=== PATIENT | female | born 1990 | race Caucasian/White ===

== ENCOUNTER 2020-12-21 03:02 | Emergency (ER) | payer MEDICAID, SELFPAY ==
[2020-12-21 03:03] VITALS: BP 170/94; PULSE 82; RESP 19; TEMP 36.6; O2SAT 99; BMI 22.7
[2020-12-21 03:10] VITALS: PULSE 80; RESP 22; O2SAT 99
--- NOTE | 2020-12-21 03:11 | CTR_ITS ---
PROCEDURE INFORMATION: Exam: CT Abdomen And Pelvis With Contrast Exam date and time: 12/21/2020 3:15 AM Age: 30 years old Clinical indication: Abdominal pain; Localized; Left lower quadrant (llq); Prior surgery; Surgery type: Tubal; Patient HX: Llq pain; Additional info: Abd pain TECHNIQUE: Imaging protocol: Computed tomography of the abdomen and pelvis with contrast. Radiation optimization: All CT scans at this facility use at least one of these dose optimization techniques: automated exposure control; mA and/or kV adjustment per patient size (includes targeted exams where dose is matched to clinical indication); or iterative reconstruction. Contrast material: OMNI 300; Contrast volume: 95 ml; Contrast route: INTRAVENOUS (IV); COMPARISON: No relevant prior studies available. RADIATION DOSE METRICS: Total DLP (mGy-cm): 397.33 FINDINGS: Lungs: The lung bases are clear. Liver: Unremarkable. Gallbladder and bile ducts: No definite gallbladder abnormality by CT. No biliary tree dilation. Pancreas: Unremarkable. Spleen: Unremarkable. Adrenal glands: Unremarkable. Kidneys and ureters: There is appears to be slightly delayed concentration of contrast by the left kidney. No significant left hydronephrosis. However, there is mild to moderate left hydroureter, all the way to the urinary bladder. Suspect mild thickening/enhancement of the left ureteral sargent. No definite ureteral calculus is identified. Question if patient could have recently passed a left ureteral calculus. Other possible etiologies for this appearance might include left ureteritis/pyelonephritis, and less commonly a radiolucent ureteral calculus. Please correlate clinically. The left kidney enhances homogeneously. No right hydronephrosis or visible right ureteral calculus. Stomach and bowel: There are no CT findings to strongly suggest diverticulitis. Appendix: The appendix is probably identified, and there are no suspicious findings for appendicitis. No pericecal inflammatory changes are seen. Intraperitoneal space: No free air, ascites, or bowel distention. Vasculature: No evidence for abdominal aortic aneurysm. Lymph nodes: No retroperitoneal adenopathy. Urinary bladder: Small 2 mm calcification along the posterior right aspect of the urinary bladder that I think is probably posterior to the bladder rather than representing a calculus in the bladder. Difficult to be completely certain. Reproductive: Essentially unremarkable for age. Bones/joints: No significant acute finding. Soft tissues: No significant acute finding. CT/CT abdomen pelvis w con* [id number] IMPRESSION: 1. Mild to moderate left hydroureter. Suspect mild thickening/enhancement of the left ureteral sargent. 2. No visible ureteral calculus. Question if patient could have recently passed a left ureteral calculus. Left ureteritis/pyelonephritis should also be considered for this appearance. See additional discussion above. 3. No diverticulitis. 4. No free air or bowel distention. 5. Other findings discussed above. Radiation Dose CTDIVOL = (mGy): DLP = 397.33 (mGy-cm)
[2020-12-21 03:19] LABS: Basophils # 0.1 10^3/uL (0.0-0.1); Basophils % 0.5 %; Eosinophils # 0.6 10^3/uL (0.0-0.8); Eosinophils % 4.4 %; Hematocrit 31.6 % (37.0-47.0); Hemoglobin 9.4 g/dL (11.5-15.3); Lymphocytes # 1.8 10^3/uL (0.8-4.8); Lymphocytes % 12.5 %; Mean Corpuscular HGB Conc 29.7 g/dL (30.0-36.0); Mean Corpuscular Hemoglobin 21.4 pg (28.0-34.0); Mean Corpuscular Volume 71.8 fL (81-99); Mean Platelet Volume 9.9 fL (7.4-10.4); Monocytes # 1.1 10^3/uL (0.2-0.9); Monocytes % 7.7 %; Neutrophils # 10.66 10^3/uL (1.8-7.7); Neutrophils % 74.6 %; Nucleated Red Blood Cells % 0 %; Platelet Count 358 10^3/cmm (130-400); Red Cell Distribution Width 18.2 % (12.1-15.1); White Blood Count 14.3 10^3/uL (4.0-10.0)
--- NOTE | 2020-12-21 03:39 | W.ED.ABDPA2 ---
HPI - Abdominal Pain General: Chief Complaint: Abdominal Pain Stated Complaint: abd pain Time Seen by Provider: 12/21/20 03:11 History of Present Illness: HPI narrative: 30-year-old female presenting with sudden onset left lower quadrant pain around 1130. It worsened. She has had significant nausea, but no vomiting. No diarrhea, no blood in her stool. No change in her urination. MD elicited complaint: abdominal pain Pertinent past history: none Onset (ago): hour(s) Pain Consistency: constant Location: LLQ Severity: severe Quality: stabbing Radiation: LLQ Migration to: no migration Exacerbating factors: movement Associated Symptoms: Reports nausea; Denies coffee ground emesis, diarrhea, dysuria, fever(s), hematuria, loose stools and vomiting Related Data: Date of Last Menstrual Period: 12/21/20 Review of Systems Const: Denies: fever(s) ENMT: Denies: odynophagia, dental pain or sinus pain Card: Denies: chest pain, palpitations or irregular heart rhythm Resp: Denies: dyspnea, productive cough, non-productive cough or wheezing GI: Reports: nausea; Denies: vomiting, coffee ground emesis or diarrhea : Denies: dysuria, urinary frequency, urinary urgency or hematuria Musc: Denies: neck pain or back pain Skin/Breast: Denies: rash or erythema Neuro: Denies: headache(s), dizziness or vertigo Psych: Denies: anxiety or auditory hallucinations PFS ED PFSH: Medical History No pertinent past medical history Social History Smoking and tobacco status: current every day smoker cigarettes Packs smoked per day: 1 Years cigarettes smoked: 14 Second hand smoke exposure: Yes Alcohol intake: never Lives independently: Yes Household members: children Current occupational status: employed Current occupation: self History of recent travel: No Current gender identity: Female Female Reproductive History: Date of last menstrual period: 12/21/20 Physical Exam Const: GENERAL APPEARANCE: well developed and in distress ORIENTATION/CONSCIOUSNESS: Yes oriented to person, Yes oriented to place and Yes oriented to time HENMT: COMMON NORMALS: normocephalic, external ears normal and Normal external nose present HEAD & SCALP: normocephalic FACE & SINUS: normal facial exam NOSE: Normal external nose present and No nasal discharge present EXTERNAL EAR: Yes external ears normal Eye: COMMON NORMALS: Equal, round and reactive pupils present, EOMs intact bilaterally and conjunctivae normal EYELID: eyelids normal CONJUNCTIVA: Yes conjunctivae normal PUPIL: Yes Equal, round and reactive pupils present Neck/C-Spine: GENERAL: No tracheal deviation Chest: COMMONS NORMALS: normal inspection of the chest CHEST: No tenderness Resp: COMMON NORMALS: clear to auscultation bilaterally EFFORT & INSPECTION: No tachypneic, No respiratory distress, No retractions, No uses accessory muscles and No tracheal deviation AUSCULTATION: clear to auscultation bilaterally, no rhonchi, no wheezes and lung sounds not diminished Cardio: COMMON NORMALS: regular rate and regular rhythm RATE: regular rate RHYTHM: regular rhythm HEART SOUNDS: no murmurs PERIPHERAL PULSES: radial pulses present GI: INSPECTION: No abdominal distension AUSCULTATION: No Hyperactive bowel sounds present and No Hypoactive bowel sounds present PALPATION: Yes Tenderness to palpation present (GI) (Suprapubic) Details: LLQ, Yes Guarding due to palpation present (GI) and No Rigid due to palpation PERCUSSION: no dullness to percussion and no tympanic to percussion : COMMON NORMALS: Yes no CVA tenderness BLADDER/KIDNEY EXAM: Yes no CVA tenderness Back/Pelvis: COMMON NORMALS: no CVA tenderness Neuro: SENSORIUM/ORIENTATION: Yes oriented to person, Yes oriented to place and Yes oriented to time Psych: COMMON NORMALS: mental status grossly normal Skin: COMMON NORMALS: no rashes or lesions noted GENERAL SKIN EXAM: no rashes or lesions noted Course Vital Signs: Vital signs: Vital Signs Temperature 97.8 F 12/21/20 03:03 Pulse Rate 84 12/21/20 03:46 Respiratory Rate 18 12/21/20 03:46 Blood Pressure 170/94 12/21/20 03:03 Pulse Oximetry 99 12/21/20 03:46 MDM - Abdominal Pain MDM Narrative: Medical decision making narrative: 30-year-old female with left-sided abdominal pain. Her hemoglobin is 9.4. White blood cell count 14.3. Other labs are benign. She has hematuria on urinalysis without infection. CT shows mild to moderate left hydroureter and some thickening of the ureteral sargent on the left. This is suspicious for a recently passed kidney stone which fits her symptoms. Her pain is improved currently, although she still nauseated. She was counseled on her diagnosis. She will be discharged. Lab Data: Labs: Lab Results 12/21/20 12/21/20 12/21/20 Range/Units 03:08 03:08 03:08 WBC 14.3 H (4.0-10.0) 10^3/ uL RBC 4.40 (4.1-5.3) 10^6/u L Hgb 9.4 L (11.5-15.3) g/dL Hct 31.6 L (37.0-47.0) % MCV 71.8 L (81-99) fL MCH 21.4 L (28.0-34.0) pg MCHC 29.7 L (30.0-36.0) g/dL RDW 18.2 H (12.1-15.1) % Plt Count 358 (130-400) 10^3/c mm MPV 9.9 (7.4-10.4) fL Neut % (Auto) 74.6 % Lymph % (Auto) 12.5 % [place] % (Auto) 7.7 % Eos % (Auto) 4.4 % Baso % (Auto) 0.5 % Neut # (Auto) 10.66 H (1.8-7.7) 10^3/u L Lymph # (Auto) 1.8 (0.8-4.8) 10^3/u L [place] # (Auto) 1.1 H (0.2-0.9) 10^3/u L Eos # (Auto) 0.6 (0.0-0.8) 10^3/u L Baso # (Auto) 0.1 (0.0-0.1) 10^3/u L Nucleated RBC % (a uto) 0 % Nucleated RBCs # 0.0 /100WBC Sodium 136 (136-145) mmol/L Potassium 3.9 (3.5-5.1) mmol/L Chloride 104 (98-107) mmol/L Carbon Dioxide 23 (22-29) mmol/L Anion Gap 12.9 (5-19) BUN 21 H (6-20) mg/dL Creatinine 0.8 (0.5-0.9) mg/dL GFR Calculation 83.7 L (90-130) mL/min Glucose 88 (65-115) mg/dL Calculated Osmolal ity 284 L (285-295) mOsm/k g Lactate 0.9 (0.5-2.2) mmol/L Calcium 8.6 (8.5-10.5) mg/dL Total Bilirubin 0.3 (0.15-1.2) mg/dL AST 16 (0-32) U/L ALT 15 (0-33) U/L Alkaline Phosphata se 72 (35-105) IU/L C-Reactive Protein 0.3 (0.0-4.9) mg/L Total Protein 6.8 (6.6-8.7) g/dL Albumin 3.9 (3.5-5.2) g/dL Globulin 2.9 (1.3-4.6) g/dL Lipase 197 H (13-60) U/L HCG, Qual (Negative) Urine Color (Yellow) Urine Appearance (CLEAR) Urine pH (5-7) Ur Specific Gravit y (1.005-1.030) Urine Protein (Negative) Urine Glucose (UA) (Normal) Urine Ketones (Negative) Urine Blood (Negative) Urine Nitrate (Negative) Urine Bilirubin (Negative) Urine Urobilinogen (Negative) mg/dL Ur Leukocyte Stacy ase (Negative) Urine RBC (0-2) /hpf Urine WBC (0-5) /hpf Ur Squamous Epith Cells (0-5) /hpf Amorphous Sediment /hpf Urine Bacteria (NONE) /hpf 12/21/20 12/21/20 Range/Units 03:08 03:14 WBC (4.0-10.0) 10^3/ uL RBC (4.1-5.3) 10^6/u L Hgb (11.5-15.3) g/dL Hct (37.0-47.0) % MCV (81-99) fL MCH (28.0-34.0) pg MCHC (30.0-36.0) g/dL RDW (12.1-15.1) % Plt Count (130-400) 10^3/c mm MPV (7.4-10.4) fL Neut % (Auto) % Lymph % (Auto) % [place] % (Auto) % Eos % (Auto) % Baso % (Auto) % Neut # (Auto) (1.8-7.7) 10^3/u L Lymph # (Auto) (0.8-4.8) 10^3/u L [place] # (Auto) (0.2-0.9) 10^3/u L Eos # (Auto) (0.0-0.8) 10^3/u L Baso # (Auto) (0.0-0.1) 10^3/u L Nucleated RBC % (a uto) % Nucleated RBCs # /100WBC Sodium (136-145) mmol/L Potassium (3.5-5.1) mmol/L Chloride (98-107) mmol/L Carbon Dioxide (22-29) mmol/L Anion Gap (5-19) BUN (6-20) mg/dL Creatinine (0.5-0.9) mg/dL GFR Calculation (90-130) mL/min Glucose (65-115) mg/dL Calculated Osmolal ity (285-295) mOsm/k g Lactate (0.5-2.2) mmol/L Calcium (8.5-10.5) mg/dL Total Bilirubin (0.15-1.2) mg/dL AST (0-32) U/L ALT (0-33) U/L Alkaline Phosphata se (35-105) IU/L C-Reactive Protein (0.0-4.9) mg/L Total Protein (6.6-8.7) g/dL Albumin (3.5-5.2) g/dL Globulin (1.3-4.6) g/dL Lipase (13-60) U/L HCG, Qual Negative (Negative) Urine Color Yellow (Yellow) Urine Appearance Sl cloudy A (CLEAR) Urine pH 8 H (5-7) Ur Specific Gravit y 1.015 (1.005-1.030) Urine Protein Neg (Negative) Urine Glucose (UA) Norm (Normal) Urine Ketones Negative (Negative) Urine Blood 2+ H (Negative) Urine Nitrate Negative (Negative) Urine Bilirubin Neg (Negative) Urine Urobilinogen Norm (Negative) mg/dL Ur Leukocyte Stacy ase Negative (Negative) Urine RBC 0-4 H (0-2) /hpf Urine WBC 0-4 H (0-5) /hpf Ur Squamous Epith Cells 5-10 H (0-5) /hpf Amorphous Sediment 4+ /hpf Urine Bacteria Trace (NONE) /hpf Discharge Plan Discharge Patient Disposition: Home Clinical Impression: Ureterolithiasis, Renal colic on left side Condition: Stable Prescriptions: New Zofran 4 mg tablet 4 mg PO Q6H PRN (Reason: nausea and vomiting) Qty: 10 RF: 0 Percocet 7.5-325 mg tablet 1 tab PO Q6H PRN (Reason: pain) Qty: 5 RF: 0 Discharge Orders: Discharge ED (Routine); Ordered 12/21/20 Ordered By: Cheko Layton Discharge Diet: Advance as tolerated and Clear Liquid Discharge Activity: Increase activity as tolerated Patient Instructions: Kidney Stones (ED), Renal Colic (ED), Opioid Safety Activity Restrictions/Additional Instructions: Return for fever greater than 100, vomiting liquids or medications despite treatment, worsening pain despite treatment, other concerning symptoms. Coding Level of Care Code ED Rehabilitation Therapy Aide for Angela Fwd Exam Comprehensive
[2020-12-21] MEDS: sodium chloride 0.9% 1,000 ML 999 ML IV (03:40)
[2020-12-21 03:41] LABS: HCG, Serum Qual Negative (Negative)
[2020-12-21 03:42] VITALS: RESP 18; O2SAT 100
[2020-12-21] MEDS: HYDROmorphone 1 mg/mL INJ 1 mL IVP (03:42)
[2020-12-21 03:46] VITALS: PULSE 84; RESP 18; O2SAT 99
[2020-12-21 03:50] LABS: Lactate (Lactic Acid level) 0.9 mmol/L (0.5-2.2)
[2020-12-21 03:51] LABS: Alanine Aminotransferase 15 U/L (0-33); Albumin Level 3.9 g/dL (3.5-5.2); Alkaline Phosphatase 72 IU/L (35-105); Anion Gap 12.9 (5-19); Aspartate Amino Transferase 16 U/L (0-32); Blood Urea Nitrogen 21 mg/dL (6-20); C Reactive Protein 0.3 mg/L (0.0-4.9); Calcium 8.6 mg/dL (8.5-10.5); Carbon Dioxide 23 mmol/L (22-29); Chloride 104 mmol/L (98-107); Globulin 2.9 g/dL (1.3-4.6); Glomerular Filtration Rate 83.7 mL/min (90-130); Glucose 88 mg/dL (65-115); Lipase 197 U/L (13-60); Osmolality Calculated 284 mOsm/kg (285-295); Potassium 3.9 mmol/L (3.5-5.1); Sodium 136 mmol/L (136-145); Total Bilirubin 0.3 mg/dL (0.15-1.2); Total Protein 6.8 g/dL (6.6-8.7)
[2020-12-21] MEDS: iohexol 300 mg/mL 100 mL Btl IV (04:03)
[2020-12-21 04:37] LABS: Add Urine Microscopic? YES; Bilirubin Urine Neg (Negative); Blood Urine 2+ (Negative); Glucose Urine UA Norm (Normal); Ketones Urine Negative (Negative); Leukocyte Esterase Urine Negative (Negative); Nitrate Urine Negative (Negative); Protein Urine Neg (Negative); Specific Gravity, Urine 1.015 (1.005-1.030); Urine Color Yellow (Yellow); Urobilinogen Urine Norm (Negative); pH Urine 8 (5-7)
[2020-12-21 04:38] LABS: Add Urine Culture? No; Amorphous Sediment Urine 4+ /hpf; Bacteria Urine TRACE /hpf; RBC Urine 0-4 /hpf (0-2); WBC Urine 0-4 /hpf (0-5)
[2020-12-21] MEDS: ondansetron 2 mg/ML SDV 2 mL 4 MG IVP (05:25)
[2020-12-21 05:42] VITALS: BP 139/82; PULSE 69; RESP 16; O2SAT 100
== END 2020-12-21 05:42 | disposition home or self-care (01) ==
PROVIDERS: Emergency Provider Emergency Medicine
DX: N20.1 Calculus of ureter (principal); N23 Unspecified renal colic; F17.210 Nicotine dependence, cigarettes, uncomplicated
CPT/HCPCS: 74177; 80053; 81001; 83605; 83690; 84703; 85025; 86140; 96361; 96374; 96375; 99284; J1170; J2405; J7030; Q9967

== ENCOUNTER 2021-01-04 18:43 | Emergency (ER) | payer MEDICAID, SELFPAY ==
[2021-01-04 18:50] VITALS: BP 184/106; PULSE 84; RESP 16; TEMP 36.4; O2SAT 100; BMI 21.4
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
[2021-01-04] MEDS: HYDROcodone-acetaminophen 5-325 mg Tablet 1 TAB PO (20:56)
--- NOTE | 2021-01-04 21:05 | PC.NURSE ---
Sugar tong spling to right lower arm per Dr. Ruiz verbal order. Pt tolerated well. Pt arm placed in universal sling at this time as well.
[2021-01-04 21:06] VITALS: BP 141/110; PULSE 90; O2SAT 100
--- NOTE | 2021-01-06 09:32 | DCPLANNER ---
automotive center manager had message to schedule a follow up appointment for patient with ortho. automotive center manager called the ortho clinic, spoke with Jana, gave clinic patients information. automotive center manager was told that patients information would be printed and reviewed. Clinic will call patient with appointment information.
--- NOTE | 2021-01-08 10:29 | DCPLANNER ---
Patient has a follow up appointment scheduled for Friday, January 08, 2021 at 10:[address] Crawford. Clinic will call patient with appointment information.
--- NOTE | 2021-01-15 08:15 | DCPLANNER ---
Patient had a follow up appointment scheduled for 01.08.21 with ortho - patient did attend appointment.
== END 2021-01-04 21:06 | disposition home or self-care (01) ==
PROVIDERS: Emergency Provider Family Medicine
DX: S52.221A Displaced transverse fracture of shaft of right ulna, initial encounter for closed fracture (principal); W20.8XXA Other cause of strike by thrown, projected or falling object, initial encounter; F17.210 Nicotine dependence, cigarettes, uncomplicated
CPT/HCPCS: 29125; 73090; 99283

== ENCOUNTER 2021-01-08 13:39 | Outpatient (CLI) | payer MEDICAID, SELFPAY | END 2021-01-08 13:40 | disposition home or self-care (01) | LOC: SPT 13:40 | PROVIDERS: Visit Provider Orthopaedic Surgery | DX: Z46.89 Encounter for fitting and adjustment of other specified devices (principal); S52.201D Unspecified fracture of shaft of right ulna, subsequent encounter for closed fracture with routine healing; X58.XXXD Exposure to other specified factors, subsequent encounter | CPT/HCPCS: 97760; L3982 ==

== ENCOUNTER → 2021-01-22 11:23 | Outpatient (BNVA) | payer MEDICAID, SELFPAY | PROVIDERS: Visit Provider Orthopaedic Surgery | DX: S52.201A Unspecified fracture of shaft of right ulna, initial encounter for closed fracture (principal); X58.XXXA Exposure to other specified factors, initial encounter | CPT/HCPCS: 73110 ==

== ENCOUNTER → 2021-02-17 13:13 | Outpatient (BNVA) | payer MEDICAID, SELFPAY | PROVIDERS: Visit Provider Orthopaedic Surgery | DX: S52.201A Unspecified fracture of shaft of right ulna, initial encounter for closed fracture (principal); X58.XXXA Exposure to other specified factors, initial encounter | CPT/HCPCS: 73110 ==

== ENCOUNTER → 2021-06-16 11:13 | Outpatient (BNVA) | payer MEDICAID, SELFPAY | PROVIDERS: Visit Provider Nurse Practitioner Family | DX: L02.412 Cutaneous abscess of left axilla (principal); B07.9 Viral wart, unspecified | CPT/HCPCS: 87070; 87077; 87184 ==

== ENCOUNTER 2021-11-22 04:57 | Emergency (ER) | payer MEDICAID, SELFPAY ==
[2021-11-22 05:08] VITALS: BP 160/77; PULSE 99; RESP 18; TEMP 37.1; O2SAT 100; BMI 21.4
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
[2021-11-22 06:19] VITALS: RESP 18
[2021-11-22] MEDS: oxyCODONE-APAP 10-325 mg Tablet 2 TAB PO (06:19)
[2021-11-22 06:41] VITALS: BP 145/78; PULSE 99; RESP 18; TEMP 37.1; O2SAT 100
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
[2021-11-22] MEDS: oxymetazoline 0.05% Nasal Spray 15 mL 2 SPRAY NOSTRIL-B (07:56)
[2021-11-22 08:00] VITALS: PULSE 75; RESP 15; O2SAT 100
--- NOTE | 2021-11-24 11:12 | DCPLANNER ---
Addendum entered by Kaykay Costello 12/19/21 10:30: Patient had a follow up appointment scheduled for 12.03.21 with ENT - patient did attend appointment. Addendum entered by Kaykay Costello 12/02/21 08:18: Patient has a follow up appointment scheduled for Friday, December 03, 2021 at 9:[address] Nichols at [facility] ENT clinic. Clinic will call patient with appointment information. Original Note: district manager major accounts sales had message to schedule a follow up appointment for patient with ENT clinic. district manager major accounts sales emailed patients information to Sera Madison and Hannah at [facility] General Surgery / ENT clinic. Patients information will be printed and reviewed. Clinic will call patient with appointment information.
== END 2021-11-22 08:01 | disposition home or self-care (01) ==
PROVIDERS: Emergency Provider Emergency Medicine
DX: S05.12XA Contusion of eyeball and orbital tissues, left eye, initial encounter (principal); S00.33XA Contusion of nose, initial encounter; S02.2XXA Fracture of nasal bones, initial encounter for closed fracture; S02.19XA Other fracture of base of skull, initial encounter for closed fracture; F17.210 Nicotine dependence, cigarettes, uncomplicated; V49.9XXA Car occupant (driver) (passenger) injured in unspecified traffic accident, initial encounter
CPT/HCPCS: 70450; 70486; 72125; 99283

== ENCOUNTER → 2021-12-05 13:25 | Outpatient (BNVA) | payer MEDICAID, SELFPAY | PROVIDERS: Visit Provider Otolaryngology | DX: Z11.52 Encounter for screening for COVID-19 (principal) | CPT/HCPCS: 87635 ==

== ENCOUNTER 2021-12-11 08:12 | Day surgery (SDC) | payer MEDICAID, SELFPAY ==
[2021-12-09 13:02] VITALS: BMI 21.4
[2021-12-11] VITALS (9 sets, daily range): BP systolic 120–179; BP diastolic 80–103; PULSE 73–88; RESP 15–18; TEMP 36.1–36.8; O2SAT 99–100
--- NOTE | 2021-12-11 08:47 | ANES.PREANE2 ---
Pre-Anesthetic Assessment Height/Weight: Height 1.75 m Weight 65.771 kg Preop Diagnosis: Multiple nasal fractures/septal fracture/upper lip obstructing nevus. Operation Date: 12/11/21 09:30 Proposed Procedures p ORIF displaced Nasal Fracture & [place]al [place] 12025/89451/d23.30/s02.2(Not Applicable) - Alonzo Nichols MD s excision of right upper lip nevus & repair(Right) - Alonzo Nichols MD Was Beta Tim taken within 24 hours: N/A Was Clonidine taken within 24 hours: N/A Last intake: 12/10/2021 Social Tobacco and No alcohol Exam alert, oriented x 3, clear to auscultation bilaterally and regular rate & rhythm Airway Submandibular: within normal limits Cervical ROM: within normal limits Mallampati: Class I Dentition: chipped Comments: Comments: Missing two upper incisiors Pulmonary None reported CV/HEM None reported None reported Hepatic None reported GI None reported Metabolic None reported Musc/skel None reported Neuropsych None reported Anesthetic Plan ASA status: 2 Anesthesia: Anesthesia Evaluation and General Other: We discussed risk and benefits of general anesthesia including PONV, sore throat (sometimes severe), corneal abrasion, positioning and peripheral nerve injuries, life threatening allergic reaction, post operative ICU admission requiring prolonged intubation, stroke, heart attack, , and rare incidences of recall. Patient consents to proceed with general anesthesia. Risk of > 500 ml blood loss (7ml/kg in children): No Medications/Allergies Home Medications Medication Instructions Recorded Confirmed Last Taken Type No Known Home Medications 12/09/21 12/11/21 Unknown History Allergies Allergy/AdvReac Type Severity Reaction Status Date / Time No Known Allergies Allergy Verified 12/11/21 08:38 [facility] Anesthesia Medical History No pertinent past medical history Social History Smoking and tobacco status: current every day smoker (.5 pack a day 13 yrs) cigarettes Packs smoked per day: 0.5 Years cigarettes smoked: 14 Quit status (tobacco): considering quitting Second hand smoke exposure: Yes Alcohol intake: never Lives independently: Yes Household members: children Current occupational status: employed Current occupation: self History of recent travel: No Current gender identity: Female Special emily needs: No Agree to transfusion: Yes Female Reproductive History Date of last menstrual period: 11/07/21 Data Anesthesia Cardiac Studies: No Data to Display
--- NOTE | 2021-12-11 08:50 | W.PM.OPSUD ---
Surgery/Procedure H&P Update DATE OF PROCEDURE: December 11, 2021 DATE H&P PERFORMED: 12/03/21 H&P UPDATE INFORMATION: I have reviewed H&P completed within last 30 days, I have examined patient prior to procedure and No changes to prior documentation PREOP DIAGNOSIS: Multiple nasal fractures/septal fracture/upper lip obstructing nevus. PRIMARY INDICATION FOR PROCEDURE: Multiple displaced nasal fractures and severe displaced septal fracture. Large enlarging right upper lip nevus blocking right nostril. PLANNED PROCEDURE: Operation Date: 12/11/21 09:30 Proposed Procedures p ORIF displaced Nasal Fracture & concomitant septal fx [id number]/11876/d23.30/s02.2(Not Applicable) - Alonzo Nichols MD s excision of right upper lip nevus & repair(Right) - Alonzo Nichols MD
[2021-12-11 08:58] LABS: OR HCG Qualitative Urine Negative (Negative)
[2021-12-11] MEDS: sodium chloride 0.9% 1,000 ML 30 ML IV (09:03)
[2021-12-11] MEDS: scopolamine 1.5 Patch 1 PATCH TRANSDERMA (09:06)
[2021-12-11] MEDS: oxymetazoline 0.05% Nasal Spray 15 mL 1 SPRAY NOSTRIL-B (09:58)
[2021-12-11] MEDS: neomycin-poly-bacitracin oint 28 gm 1 APPLIC TOPICAL (10:00)
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
[2021-12-11] MEDS: TRAMadol 50 mg Tablet PO (11:28)
--- NOTE | 2021-12-11 14:21 | ANE.PACU2 ---
Inpatient post-anesthesia follow up: Airway intact: Yes Vital signs: Temperature 97.6 F Pulse Rate 81 Respiratory Rate 18 Blood Pressure 155/89 Pulse Oximetry 99 Oxygen Delivery Me thod Room Air Oxygen Flow Rate Fraction of Inspir ed Oxygen Hydration adequate: Yes Nausea and vomiting: No Pain level: 3 Mental status: Baseline
== END 2021-12-11 11:57 | disposition home or self-care (01) ==
PROVIDERS: Visit Provider Otolaryngology
PROC: 0NSB04Z Reposition Nasal Bone with Internal Fixation Device, Open Approach (ICD-10-PCS; CPT 21330; principal; 2021-12-11 09:20)
PROC: (CPT 11442; 2021-12-11 09:20)
DX: S02.2XXA Fracture of nasal bones, initial encounter for closed fracture (principal); X58.XXXA Exposure to other specified factors, initial encounter; D23.0 Other benign neoplasm of skin of lip; F17.210 Nicotine dependence, cigarettes, uncomplicated; J34.89 Other specified disorders of nose and nasal sinuses
CPT/HCPCS: 11442; 12051; 21336; 81025; 84703; 88305; J0690; J1100; J2370; J2405; J3010; J7030

== ENCOUNTER 2021-12-13 21:27 | Emergency (ER) | payer MEDICAID, SELFPAY ==
[2021-12-13 21:34] VITALS: BP 182/114; PULSE 86; RESP 18; TEMP 36.4; O2SAT 100; BMI 21.8
[2021-12-13 22:41] LABS: Basophils # 0.1 10^3/uL (0.0-0.1); Basophils % 0.7 %; Eosinophils # 0.6 10^3/uL (0.0-0.8); Eosinophils % 4.9 %; Hematocrit 34.7 % (37.0-47.0); Hemoglobin 9.9 g/dL (11.5-15.3); Lymphocytes # 3.3 10^3/uL (0.8-4.8); Lymphocytes % 27.5 %; Mean Corpuscular HGB Conc 28.5 g/dL (30.0-36.0); Mean Corpuscular Hemoglobin 20.5 pg (28.0-34.0); Mean Corpuscular Volume 71.7 fl (81-99); Mean Platelet Volume 9.7 fL (7.4-10.4); Monocytes # 0.9 10^3/uL (0.2-0.9); Monocytes % 7.8 %; Neutrophils # 7.05 10^3/uL (1.8-7.7); Neutrophils % 58.7 %; Nucleated Red Blood Cells % 0 %; Platelet Count 510 10^3/cmm (130-400); Red Blood Count 4.84 10^6/uL (4.1-5.3); Red Cell Distribution Width 16.7 % (12.1-15.1)
[2021-12-13 22:57] LABS: Alanine Aminotransferase 9 U/L (0-33); Albumin Level 4.5 g/dL (3.5-5.2); Alkaline Phosphatase 111 IU/L (35-105); Anion Gap 14.3 (5-19); Aspartate Amino Transferase 11 U/L (0-32); Blood Urea Nitrogen 15 mg/dL (6-20); Calcium 9.9 mg/dL (8.5-10.5); Carbon Dioxide 28 mmol/L (22-29); Chloride 96 mmol/L (98-107); Globulin 3.7 g/dL (1.3-4.6); Glucose 120 mg/dL (65-115); Osmolality Calculated 282 mOsm/kg (285-295); Potassium 3.3 mmol/L (3.5-5.1); Sodium 135 mmol/L (136-145); Total Bilirubin 0.4 mg/dL (0.15-1.2); Total Protein 8.2 g/dL (6.6-8.7)
--- NOTE | 2021-12-13 23:20 | W.ED.HA ---
HPI - Headache General: Chief Complaint: Headache Stated Complaint: Blood Pressure 201/189 Time Seen by Provider: 12/13/21 23:17 History of Present Illness: 31-year-old female comes in today with complaints of headache. Patient reports recurrent headache for about 2 months now. Patient also has been running a elevated blood pressure. Patient had surgery on the for a nasal septal repair. Patient came in tonight due to the persistence of headache and some change in vision. Patient is alert oriented. No focal neural deficits are noted. Patient appears in moderate pain. Review of Systems General: Reports: 10 or more systems reviewed and unremarkable except in HPI and below Neuro: Reports: headache(s) PFSH ED PFSH: Medical History No pertinent past medical history Social History Smoking and tobacco status: current every day smoker (.5 pack a day 13 yrs) cigarettes Packs smoked per day: 0.5 Years cigarettes smoked: 14 Quit status (tobacco): considering quitting Second hand smoke exposure: Yes Alcohol intake: never Lives independently: Yes Household members: children Current occupational status: employed Current occupation: self History of recent travel: No Current gender identity: Female Special emily needs: No Agree to transfusion: Yes Female Reproductive History: Date of last menstrual period: 11/21/21 Physical Exam Const: COMMON NORMALS: alert HENMT: FACE & SINUS: ecchymosis and edema NOSE: Abnormal external nose present and Abnormal mucous membranes and turbinates present (Nasal packing in bilateral naris) Neck/C-Spine: COMMON NORMALS: full ROM Resp: COMMON NORMALS: normal respiratory effort and clear to auscultation bilaterally AUSCULTATION: clear to auscultation bilaterally GI: COMMON NORMALS: Soft to palpation and non-tender PALPATION: Yes Soft to palpation Extremity: COMMON NORMALS: normal to inspection and no pedal edema Neuro: KOFFI COMA SCALE: document GCS findings [place] coma scale eye opening: Spontaneous Koffi coma scale verbal response: Orientated [place] coma scale motor response: Obey commands Koffi coma scale total score: 15 SENSORIUM/ORIENTATION: Yes alert GAIT: Yes Normal gait present Psych: COMMON NORMALS: cooperative Skin: COMMON NORMALS: no rashes or lesions noted GENERAL SKIN EXAM: no rashes or lesions noted Course ED course: 0040, patient reports cessation of headache. Blood pressure is down to 148/87. Reviewed exam with patient recommended starting lisinopril 10 mg daily for better blood pressure control. Recommend follow-up with primary care for reevaluation and changes in medication as needed. Patient reported understanding. Vital Signs: Vital signs: Vital Signs Temperature 97.5 F L 12/13/21 21:34 Pulse Rate 91 12/13/21 23:40 Respiratory Rate 18 12/13/21 23:40 Blood Pressure 155/112 12/13/21 23:42 Pulse Oximetry 100 12/13/21 23:40 MDM - Headache Medical Decision Making 31-year-old female comes in today for complaints of headache and elevated blood pressure. On exam patient appears in mild to moderate pain. Respirations were even lungs were clear to auscultation. Skin was warm and dry. Patient has nasal packing in bilateral naris. Differential diagnosis includes hypertensive emergency, intracranial hemorrhage, migraine headache, other headache syndrome. Patient was treated for her headache with cocktail of ketorolac, diphenhydramine, dexamethasone, and Reglan. Patient had cessation of headache. Patient was given clonidine 0.1 mg for blood pressure. Patient had cessation of headache but blood pressure remained at 148/80. Recommended starting lisinopril 10 mg daily for better blood pressure control. Prescription was written for patient. CBC, CMP noted some anemia, mild hypokalemia. CT of the head was negative for any acute intracranial hemorrhage. Patient reported understanding of care plan and need for follow-up or return to the ER. Lab Data : 12/13/21 22:25 12/13/21 22:[address] 12/13/21 23:28 IMPRESSION: 1. No acute intracranial hemorrhage or mass effect. 2. No definite acute infarct by CT, see above. 3. Paranasal sinus findings as discussed above. 4. Other findings discussed above. Laboratory Results WBC 12.0 10^3/uL (4.0-10.0) H 12/13/21 22:25 RBC 4.84 10^6/uL (4.1-5.3) 12/13/21 22:25 Hgb 9.9 g/dL (11.5-15.3) L 12/13/21 22:25 Hct 34.7 % (37.0-47.0) L 12/13/21: MCV 71.7 fl (81-99) L 12/13/21: MCH 20.5 pg (28.0-34.0) L 12/13/21: MCHC 28.5 g/dL (30.0-36.0) L 12/13/21: RDW 16.7 % (12.1-15.1) H 12/13/21: Plt Count 510 10^3/cmm (130-400) H 12/13/21: MPV 9.7 fL (7.4-10.4) 12/13/21: Neut % (Auto) 58.7 % 12/13/21: Lymph % (Auto) 27.5 % 12/13/21: [place] % (Auto) 7.8 % 12/13/21: Eos % (Auto) 4.9 % 12/13/21: Baso % (Auto) 0.7 % 12/13/21: Neut # (Auto) 7.05 10^3/uL (1.8-7.7) 12/13/21: Lymph # (Auto) 3.3 10^3/uL (0.8-4.8) 12/13/21: [place] # (Auto) 0.9 10^3/uL (0.2-0.9) 12/13/21: Eos # (Auto) 0.6 10^3/uL (0.0-0.8) 12/13/21: Baso # (Auto) 0.1 10^3/uL (0.0-0.1) 12/13/21: Nucleated RBC % (auto) 0 % 12/13/21: Nucleated RBCs # 0.0 /100WBC 12/13/21: Sodium 135 mmol/L (136-145) L 12/13/21: Potassium 3.3 mmol/L (3.5-5.1) L 12/13/21: Chloride 96 mmol/L (98-107) L 12/13/21: Carbon Dioxide 28 mmol/L (22-29) 12/13/21: Anion Gap 14.3 (5-19) 12/13/21 22: BUN 15 mg/dL (6-20) 12/13/21 22: Creatinine 0.7 mg/dL (0.5-0.9) 12/13/21 22: GFR Calculation 97.0 mL/min (90-130) 12/13/21 22: Glucose 120 mg/dL (65-115) H 12/13/21 22: Calculated Osmolality 282 mOsm/kg (285-295) L 12/13/21 22: Calcium 9.9 mg/dL (8.5-10.5) 12/13/21: Total Bilirubin 0.4 mg/dL (0.15-1.2) 12/13/21: AST 11 U/L (0-32) 12/13/21 22: ALT 9 U/L (0-33) 12/13/21 22: Alkaline Phosphatase 111 IU/L (35-105) H 12/13/21 22: Total Protein 8.2 g/dL (6.6-8.7) 12/13/21 22: Albumin 4.5 g/dL (3.5-5.2) 12/13/21: Globulin 3.7 g/dL (1.3-4.6) 12/13/21 22: Urine Color Yellow (Yellow) 12/13/21: Urine Appearance Clear (CLEAR) 12/13/21: Urine pH 5 (5-7) 12/13/21: Ur Specific [place] 1.020 (1.005-1.030) 12/13/21: Urine Protein Trace (Negative) 12/13/21: Urine Glucose (UA) Norm (Normal) 12/13/21: Urine Ketones Trace (Negative) H 12/13/21: Urine Blood Neg (Negative) 12/13/21: Urine Nitrate Negative (Negative) 12/13/21: Urine Bilirubin Neg (Negative) 12/13/21: Urine Urobilinogen Norm mg/dL (Negative) 12/13/21: Ur Leukocyte Esterase Negative (Negative) 12/13/21: Urine RBC 0-4 /hpf (0-2) H 12/13/21 22:32 Urine WBC 0-4 /hpf (0-5) H 12/13/21 22:32 Ur Squamous Epith Cells 25-40 /hpf (0-5) H 12/13/21 22:32 Amorphous Sediment Not Reportable 12/13/21 22:32 Urine Bacteria 2+ /hpf (NONE) H 12/13/21 22:32 Urine Mucus 2+ /hpf 12/13/21 22:32 Discharge Plan Discharge Patient Disposition: Home Clinical Impression: Headache Hypertension Qualifiers: Hypertension type: unspecified Qualified Code(s): I10 - Essential (primary) hypertension Condition: Stable Prescriptions: New lisinopril 10 mg tablet 10 mg PO DAILY Qty: 30 0RF Rx Instructions: for blood pressure No Action tramadol 50 mg tablet 50 mg PO Q4H PRN (Reason: pain) Qty: 45 0RF Discharge Orders: Discharge ED (Routine); Ordered 12/14/21 Ordered By: Claude Jay Discharge Diet: Usual diet Discharge Activity: Increase activity as tolerated Patient Instructions: DASH Eating Plan (ED), Hypertension (ED) Activity Restrictions/Additional Instructions: Take medication daily as directed for blood pressure. Follow-up with primary care in 1 week for recheck. Drink plenty of water with medication. Reviewed the DASH diet plan to help with blood pressure control. Consider other lifestyle changes such as smoking cessation and limiting alcohol consumption to 1-2 drinks a day along with 20 to 30 minutes of daily exercise. Return to ER for new concerns. Coding Level of Care Code ED Wound Care Physician for Angela Fwd History Expanded Problem Focused Exam Comprehensive Medical Decision Making Moderate Complexity Time Spent (min) 40
--- NOTE | 2021-12-13 23:28 | CTR_ITS ---
PROCEDURE INFORMATION: Exam: CT Head Without Contrast Exam date and time: 12/13/2021 11:28 PM Age: 31 years old Clinical indication: Pain; Headache; Additional info: Headache visual changes TECHNIQUE: Imaging protocol: Computed tomography of the head without contrast. Radiation optimization: All CT scans at this facility use at least one of these dose optimization techniques: automated exposure control; mA and/or kV adjustment per patient size (includes targeted exams where dose is matched to clinical indication); or iterative reconstruction. COMPARISON: CT head wo con* [id number] 11/22/2021 6:32 AM RADIATION DOSE METRICS: Total DLP (mGy-cm): 820.55 FINDINGS: Brain: No acute intracranial hemorrhage or mass effect. No definite acute infarct by CT. MRI could be more sensitive/specific for detection, as clinically directed. Cerebral ventricles: Ventricle size is normal for age. Paranasal sinuses: Moderate mucosal thickening/opacity in the ethmoid sinuses. Minimal similar findings in the frontal sinus. Included paranasal sinuses otherwise appear essentially clear. Mastoid air cells: No significant acute finding. Bones/joints: No definite acute skull fracture. Soft tissues: No significant acute finding. CT/CT head wo con* [id number] IMPRESSION: 1. No acute intracranial hemorrhage or mass effect. 2. No definite acute infarct by CT, see above. 3. Paranasal sinus findings as discussed above. 4. Other findings discussed above.
[2021-12-13 23:40] VITALS: BP 155/112; PULSE 91; RESP 18; O2SAT 100
[2021-12-13 23:40] LABS: Add Urine Microscopic? YES; Bilirubin Urine Neg (Negative); Blood Urine Neg (Negative); Glucose Urine UA Norm (Normal); Ketones Urine Trace (Negative); Leukocyte Esterase Urine Negative (Negative); Nitrate Urine Negative (Negative); Protein Urine Trace (Negative); Urine Appearance Clear (CLEAR); Urine Color Yellow (Yellow); Urobilinogen Urine Norm (Negative); pH Urine 5 (5-7)
[2021-12-13] MEDS: metoclopramide 5 mg/mL SDV 2 mL 10 MG IVP (23:40)
[2021-12-13] MEDS: dexamethasone 4 mg/mL INJ 8 MG IVP (23:40)
[2021-12-13 23:41] LABS: Add Urine Culture? No; Bacteria Urine 2+ /hpf; Mucus Urine 2+ /hpf; RBC Urine 0-4 /hpf (0-2); Squamous Epithelial Cell Urine 25-40 /hpf (0-5); WBC Urine 0-4 /hpf (0-5)
[2021-12-13] MEDS: ketorolac 30 mg/mL INJ 15 MG IVP (23:41)
[2021-12-13] MEDS: sodium chloride 0.9% 500 ML 999 ML IV (23:41)
[2021-12-13] MEDS: diphenhydrAMINE 50 mg/mL SDV 1mL 25 MG IVP (23:41)
[2021-12-13 23:42] VITALS: BP 155/112
[2021-12-13] MEDS: cloNIDine 0.1 mg Tablet PO (23:42)
--- NOTE | 2021-12-13 23:52 | PC.NURSE ---
patient taken to ct via wheelchiar per radiology staff.
[2021-12-14 00:45] VITALS: BP 148/95; PULSE 83; RESP 20; TEMP 36.7; O2SAT 98
[2021-12-14 00:52] VITALS: BP 148/95; PULSE 83; RESP 20; TEMP 36.7; O2SAT 100
== END 2021-12-14 00:56 | disposition home or self-care (01) ==
PROVIDERS: Emergency Provider Nurse Practitioner Family
DX: R51.9 Headache, unspecified (principal); I10 Essential (primary) hypertension; F17.210 Nicotine dependence, cigarettes, uncomplicated
CPT/HCPCS: 70450; 80053; 81001; 85025; 96374; 96375; 99283; J1100; J1200; J1885; J2765; J7040

== ENCOUNTER 2022-08-13 07:45 | Emergency (ER) | payer MEDICAID, SELFPAY ==
[2022-08-13 07:46] VITALS: BMI 20.7
[2022-08-13 07:52] VITALS: BP 148/92; PULSE 107; RESP 18; TEMP 36.6; O2SAT 100
[2022-08-13 08:13] VITALS: PULSE 100; O2SAT 97
--- NOTE | 2022-08-13 08:21 | W.ED.GENADLT ---
HPI - General Adult General: Chief complaint: General Medical Stated complaint: strip throat Time Seen by Provider: 08/13/22 07:46 Source: patient Mode of arrival: ambulatory History of Present Illness: 31 yo female presents complaining of sorethroat and fever. No vomitting, no rashes. She has had painful swallowing. Mild sinus congestion no cough. No vomiting no diarrhea Onset (ago): minute(s) Severity: moderate Quality: aching Relieving factors: none Exacerbating factors: none Associated symptoms: Deny chest pain, confusion, cough, diaphoresis, decreased appetite, dyspnea, fevers/chills, headache(s), malaise, nausea, rash, palpitations, seizures, short of breath, syncope, vomiting or weakness Treatments prior to arrival: none Review of Systems Const: Denies: malaise or diaphoresis ENMT: Denies: throat pain, ear or mastoid pain, nasal discharge or nasal congestion Card: Denies: chest pain, palpitations or syncope Resp: Denies: dyspnea GI: Denies: nausea or vomiting : Denies: flank pain, difficulty voiding, dysuria, urinary frequency or urinary urgency Skin/Breast: Denies: rash Neuro: Denies: headache(s) or confusion PFSH ED PFSH: Medical History No pertinent past medical history Social History Smoking and tobacco status: current every day smoker (.5 pack a day 13 yrs) cigarettes Packs smoked per day: 0.5 Years cigarettes smoked: 14 Quit status (tobacco): considering quitting Second hand smoke exposure: Yes Alcohol intake: never Lives independently: Yes Household members: children Current occupational status: employed Current occupation: self History of recent travel: No Current gender identity: Female Special emily needs: No Agree to transfusion: Yes Female Reproductive History: Date of last menstrual period: 11/21/21 Physical Exam Const: GENERAL APPEARANCE: cooperative and comfortable ORIENTATION/CONSCIOUSNESS: Yes awake, Yes oriented to person, Yes oriented to place and Yes oriented to time HENMT: COMMON NORMALS: normocephalic, atraumatic, hearing grossly normal bilaterally, external ears normal, EAC's normal, TM's normal bilaterally, Normal nasal mucous membranes and turbinates present, moist oral mucous membranes and oropharynx normal HEAD & SCALP: normocephalic and atraumatic NOSE: Normal nasal mucous membranes and turbinates present EXTERNAL EAR: Yes external ears normal EXTERNAL AUDITORY CANAL: EAC's normal TYMPANIC MEMBRANE: TM's normal bilaterally THROAT: posterior oropharynx abnormal edema, erythema and exudates Lymph: LYMPHATIC: lymphadenopathy submandibular Resp: COMMON NORMALS: normal respiratory effort, No retractions, No use of accessory muscles and clear to auscultation bilaterally AUSCULTATION: clear to auscultation bilaterally Cardio: COMMON NORMALS: regular rhythm and No murmurs present (Cardio) RATE: tachycardic RHYTHM: regular rhythm GI: COMMON NORMALS: Soft to palpation and No hepatosplenomegaly present AUSCULTATION: Yes normoactive bowel sounds PALPATION: Yes Soft to palpation, No Tenderness to palpation present (GI), No Guarding due to palpation present (GI) and Yes No hepatosplenomegaly present Extremity: COMMON NORMALS: normal to inspection, capillary refill normal, no clubbing, cyanosis or edema, no calf tenderness and no pedal edema Neuro: SENSORIUM/ORIENTATION: Yes oriented to person, Yes oriented to place and Yes oriented to time Skin: COMMON NORMALS: no rashes or lesions noted GENERAL SKIN EXAM: no rashes or lesions noted Course Vital Signs: Vital signs: Vital Signs Temperature 97.8 F 08/13/22 07:52 Pulse Rate 100 08/13/22 08:13 Respiratory Rate 18 08/13/22 07:52 Blood Pressure 148/92 08/13/22 07:52 Pulse Oximetry 97 08/13/22 08:13 Oxygen Delivery Me thod 08/13/22 07:52 MDM - General Adult Medical Decision Making Based on clinical exam patient appears to have strep pharyngitis. Prescribed amoxicillin. Also noted patient is moderately anemic follow-up with primary care Medical Records I reviewed the patient's medical records. Lab Data I reviewed the patient's lab results. Discharge Plan Discharge Patient Disposition: Home Clinical Impression: Strep pharyngitis Condition: Stable Prescriptions: New amoxicillin 875 mg tablet 875 mg PO BID 10 Days Qty: 20 0RF No Action lisinopril 10 mg tablet 10 mg PO DAILY Qty: 30 0RF Rx Instructions: for blood pressure Discharge Orders: Discharge ED (Routine); Ordered 08/13/22 Ordered By: Gibosn Ervin Discharge Diet: Advance as tolerated Discharge Activity: Increase activity as tolerated Patient Instructions: Opioid Safety, Pain Management Activity Restrictions/Additional Instructions: You were seen for sore throat today based on clinical exam and is strep pharyngitis start on the antibiotics 1 pill twice daily for a full 10 days. If you have significant worsening of your symptoms check with your primary care doctor or return to the emergency room. Stand Alone Forms: Work/School Release Coding Level of Care Code ED Certified Medical Biller for Angela Fwroshan Exam Comprehensive
== END 2022-08-13 08:15 | disposition home or self-care (01) ==
PROVIDERS: Emergency Provider Family Medicine
DX: J02.0 Streptococcal pharyngitis (principal); F17.210 Nicotine dependence, cigarettes, uncomplicated
CPT/HCPCS: 99283

== ENCOUNTER 2022-10-06 18:05 | Emergency (ER) | payer MEDICAID, SELFPAY ==
[2022-10-06 18:31] VITALS: BP 162/111; PULSE 102; RESP 16; TEMP 36.9; O2SAT 98; BMI 23.6
--- NOTE | 2022-10-06 18:39 | ED_ITS ---
HPI - Extremity Problem General: Chief complaint: Extremity Injury, Upper Stated complaint: Left Arm Injury Time Seen by Provider: 10/06/22 18:38 History of Present Illness: Patient was not seen by this provider. Note opened in error [facility] ED PFSH: Medical History No pertinent past medical history Social History Smoking and tobacco status: current every day smoker (.5 pack a day 13 yrs) cigarettes Packs smoked per day: 0.5 Years cigarettes smoked: 14 Quit status (tobacco): considering quitting Second hand smoke exposure: Yes Alcohol intake: never Lives independently: Yes Household members: children Current occupational status: employed Current occupation: self History of recent travel: No Current gender identity: Female Special emily needs: No Agree to transfusion: Yes Female Reproductive History: Date of last menstrual period: 11/21/21 Course Vital Signs: Vital signs: Vital Signs Temperature 98.4 F 10/06/22 18:31 Pulse Rate 102 H 10/06/22 18:31 Respiratory Rate 16 10/06/22 18:31 Blood Pressure 162/111 10/06/22 18:31 Pulse Oximetry 98 10/06/22 18:31 Oxygen Delivery Me thod 10/06/22 18:31 MDM - Extremity (Nontraumatic) Medical Decision Making Patient was not seen by this provider. Note opened in error Discharge Plan Discharge Patient Disposition: Left Without Being Seen Condition: Stable Coding Level of Care Code ED Air Gun Operator for Angela Smith
== END 2022-10-06 18:39 | disposition left against medical advice (07) ==
PROVIDERS: Emergency Provider Family Medicine
DX: S49.92XA Unspecified injury of left shoulder and upper arm, initial encounter (principal); Z53.21 Procedure and treatment not carried out due to patient leaving prior to being seen by health care provider; F17.210 Nicotine dependence, cigarettes, uncomplicated

== ENCOUNTER 2023-03-31 18:15 | Emergency (ER) | payer MEDICAID, SELFPAY ==
[2023-03-31 18:20] VITALS: BP 203/128; PULSE 98; RESP 17; TEMP 36.8; O2SAT 100; BMI 23.6
--- NOTE | 2023-03-31 18:28 | ED_ITS ---
HPI - Skin/Abscess/Foreign Bdy General: Chief complaint: Skin/Abscess/Foreign Body Stated complaint: right foot, spider bite Time Seen by Provider: 03/31/23 18:21 Source: patient Mode of arrival: ambulatory Limitations: no limitations History of Present Illness: 32-year-old female who has an abscess to the dorsum of her right foot she states she had an abscess roughly 4 days been increasing sinus she has had some slight drainage stated is painful she rates pain a 7 out of 10 worse with palpation improved with rest. Denies any fevers. Associated symptoms: Deny chills, fever(s), nausea or vomiting Review of Systems Const: Denies: fever(s) or chills ENMT: Denies: throat pain or dental pain Card: Denies: chest pain Resp: Denies: dyspnea GI: Denies: abdominal pain, nausea or vomiting Musc: Denies: neck pain or back pain Skin/Breast: Denies: rash Neuro: Denies: headache(s) PFS ED PFSH: Medical History No pertinent past medical history Social History Smoking and tobacco status: current every day smoker (.5 pack a day 13 yrs) cigarettes Packs smoked per day: 0.5 Years cigarettes smoked: 14 Quit status (tobacco): considering quitting Second hand smoke exposure: Yes Alcohol intake: never Substance/Drug Use: never Lives independently: Yes Household members: children Current occupational status: employed Current occupation: self Current gender identity: Female Special emily needs: No Agree to transfusion: Yes Physical Exam Const: COMMON NORMALS: no acute distress and patient oriented x3 HENMT: COMMON NORMALS: normocephalic HEAD & SCALP: normocephalic Eye: COMMON NORMALS: conjunctivae normal CONJUNCTIVA: Yes conjunctivae normal Chest: COMMONS NORMALS: normal inspection of the chest Resp: COMMON NORMALS: normal respiratory effort GI: INSPECTION: Yes normal to inspection Extremity: NARRATIVE EXTREMITY EXAM: 2 cm abscess to the dorsum of the right foot Neuro: COMMON NORMALS: patient oriented x3 Psych: COMMON NORMALS: mental status grossly normal Skin: COMMON NORMALS: no rashes or lesions noted GENERAL SKIN EXAM: no rashes or lesions noted Procedures Abscess I/D Site: lower extremity Local Anesthetic: lidocaine 1% Amount of anesthesia used (mL): 6 Technique: incised with #11 blade Packing used?: none Course Vital Signs: Vital signs: Vital Signs Temperature 98.2 F 03/31/23 18:20 Pulse Rate 98 03/31/23 18:20 Respiratory Rate 17 03/31/23 18:20 Blood Pressure 203/128 03/31/23 18:20 Pulse Oximetry 100 03/31/23 18:20 Oxygen Delivery Me thod Room Air 03/31/23 18:20 MDM - Skin/Abscess/Foreign Bdy Medicial Decision Making Patient presents with abscess to right foot did incise and drain it we will place her on Bactrim she is stable for discharge at this time. Discharge Plan Discharge Patient Disposition: Home Clinical Impression: Abscess of skin or subcutaneous tissue Condition: Stable Prescriptions: New Bactrim DS 800-160 mg tablet 1 tab PO BID 10 Days Qty: 20 0RF No Action lisinopril 10 mg tablet 10 mg PO DAILY Qty: 30 0RF Rx Instructions: for blood pressure Discharge Orders: Discharge ED (Routine); Ordered 03/31/23 Ordered By: Diann Wharton Discharge Diet: Advance as tolerated Discharge Activity: Resume usual activity Patient Instructions: Abscess (ED) Coding Level of Care Code ED [employer] Processing Labourer for Angela Smith
--- NOTE | 2023-04-08 13:38 | DCPLANNER ---
Addendum entered by Kaykay Costello 04/08/23 14:05: Patient called adult protective caseworker back and declined getting established with a primary care physician, Original Note: flight control manager called patient due to no primary care physician - no answer at this time.
== END 2023-03-31 18:40 | disposition home or self-care (01) ==
PROVIDERS: Emergency Provider Emergency Medicine
DX: L02.611 Cutaneous abscess of right foot (principal); F17.210 Nicotine dependence, cigarettes, uncomplicated
CPT/HCPCS: 10060; 99283

== ENCOUNTER 2024-01-04 12:19 | Emergency (ER) | payer MEDICAID, SELFPAY ==
[2024-01-04 12:52] VITALS: BP 178/125; PULSE 88; RESP 16; TEMP 36.9; O2SAT 100; BMI 22.8
--- NOTE | 2024-01-04 13:35 | ED_ITS ---
HPI - Dental/Oral 2 General: Chief complaint: Dental/Oral Stated complaint: jaw pain, swelling Time Seen by Provider: 01/04/24 13:28 Source: patient Mode of arrival: ambulatory Limitations: no limitations History of Present Illness: Patient is a 33-year-old female presents to ED today with a complaint of dental pain to her right lower molar over the past several days as well as swelling that she noticed this morning when she woke up. Patient does not see a dentist. She is not having any trouble eating, drinking, swelling, or controlling secretions. No headache, fevers, or neurologic deficits. MD Complaint: tooth pain Teeth map: 1. Onset (ago): day(s) Duration: constant Severity: moderate Relieving factors: nothing Exacerbating factors: nothing Context: history of dental caries and poor dental care Associated symptoms: Reports no associated symptoms; Denies fever(s) or odynophagia Treatment prior to arrival: none Review of Systems 2 Const: Denies: fever(s), chills, body aches, fatigue or malaise ENMT: Reports: dental pain; Denies: throat pain, enlarged tonsils, odynophagia, swelling of lips/tongue, oral sores, nasal discharge, nasal congestion or sinus pain Card: Denies: chest pain Resp: Denies: dyspnea GI: Denies: nausea or vomiting Musc: Denies: neck pain Neuro: Denies: headache(s) or dizziness PFSH ED 2 PFSH: Medical History No pertinent past medical history Social History Smoking and tobacco/nicotine status: current every day tobacco/nicotine user (.5 pack a day 13 yrs) cigarettes Packs smoked per day: 0.5 Years cigarettes smoked: 14 Quit status (tobacco/nicotine): considering quitting Second hand smoke exposure: Yes Alcohol intake: never Substance/Drug Use: never Lives independently: Yes Household members: children Current occupational status: employed Current occupation: self Current gender identity: Female Special emily needs: No Agree to transfusion: Yes Female Reproductive History: Date of last menstrual period: 12/21/23 Physical Exam 2 Const: COMMON NORMALS: no acute distress, patient oriented x3, no limitations, alert and well nourished GENERAL APPEARANCE: cooperative O RIENTATION/CONSCIOUSNESS: Yes awake, Yes oriented to person, Yes oriented to place and Yes oriented to time HENMT: COMMON NORMALS: normocephalic and atraumatic HEAD & SCALP: normal to inspection, normocephalic and atraumatic FACE & SINUS: sinuses nontender FACE & SINUS IMAGES: 1. swelling; does not extend below mandible MOUTH: Normal oral and palatal mucosa present and lip normal TEETH & GINGIVA: Yes caries TEETH & GINGIVA IMAGES: 1. severely decayed molar with developing non-fluctuant abscess THROAT: posterior oropharynx normal, tonsils normal and other (floor of mouth is soft/non-elevated) Neck/C-Spine: COMMON NORMALS: full ROM and no lymphadenopathy GENERAL: Yes normal visual inspection, No anterior neck swelling and No submandibular swelling Neuro: COMMON NORMALS: patient oriented x3 SENSORIUM/ORIENTATION: Yes alert, Yes oriented to person, Yes oriented to place and Yes oriented to time Course 2 Vital Signs: Vital signs: Vital Signs Temperature 98.4 F 01/04/24 12:52 Pulse Rate 78 01/04/24 13:57 Respiratory Rate 16 01/04/24 12:52 Blood Pressure 178/125 01/04/24 12:52 Pulse Oximetry 98 01/04/24 13:57 Oxygen Delivery Me thod Room Air 01/04/24 12:52 MDM - Dental/Oral Medical Decision Making Patient will be placed on antibiotics and given chlorhexidine oral rinse. Encouraged her to follow-up with a dentist to soon as possible. She was given multiple dental resources to help with this. Of note patient's blood pressure very elevated upon arrival to the ED. She is asymptomatic thus does not require emergent lowering. Looking at previous documentations it looks like she has chronically elevated hypertension. Recommend she keep a detailed blood pressure log and follow-up with her primary care provider so they can adjust hypertensive medications as indicated. Return to ED precautions given. Medical Records I reviewed the patient's medical records. No radiology studies performed this visit Discharge Plan Discharge Patient Disposition: Home Clinical Impression: Dental caries, Dental abscess Condition: Stable Prescriptions: New penicillin V potassium 500 mg tablet 500 mg PO Q8H 7 Days Qty: 21 0RF Peridex 0.12 % mouthwash 15 ml buccal BID Qty: 473 0RF No Action lisinopril 10 mg tablet 10 mg PO DAILY Qty: 30 0RF Rx Instructions: for blood pressure Discharge Orders: Discharge ED (Routine); Ordered 01/04/24 Ordered By: Vernell Soto Patient Instructions: Toothache (ED), Dental Abscess Activity Restrictions/Additional Instructions: As we discussed you may try [facility] located at [address] here in [place]. Their number is . You also have been provided a list of dental resources. Fill your antibiotics and start them immediately. You need to return to the emergency department for worsening swelling, trouble eating/drinking, swallowing, or breathing. Of note your blood pressure was extremely elevated on today's visit. Looking at previous documentation you quite often have blood pressure readings that high. Please follow-up with your primary care provider and keep a detailed blood pressure log so that they can adjust blood pressure medications accordingly. Coding Level of Care Code ED [employer] for Angela Smith
[2024-01-04 13:57] VITALS: PULSE 78; O2SAT 98
== END 2024-01-04 13:42 | disposition home or self-care (01) ==
PROVIDERS: Emergency Provider Physician Assistant
DX: K02.9 Dental caries, unspecified (principal); K04.7 Periapical abscess without sinus; F17.210 Nicotine dependence, cigarettes, uncomplicated
CPT/HCPCS: 99283

== ENCOUNTER 2025-10-03 20:13 | Emergency (ER) | payer MEDICAID, SELFPAY ==
[2025-10-03 20:29] VITALS: BP 170/97; PULSE 89; RESP 20; TEMP 36.4; O2SAT 100; BMI 20.7
--- NOTE | 2025-10-03 20:54 | XRR_ITS ---
PROCEDURE INFORMATION: Exam: XR Chest Exam date and time: 10/03/2025 8:53 PM Age: 34 years old Clinical indication: Shortness of breath; Additional info: Short of breath TECHNIQUE: Imaging protocol: Radiologic exam of the chest. Views: 1 view. COMPARISON: CT cervical spin wo con* [id number] 11/22/2021 6:37 AM FINDINGS: Lungs: Unremarkable. No consolidation. Pleural spaces: Unremarkable. No pleural effusion. No pneumothorax. Heart/Mediastinum: Unremarkable. No cardiomegaly. Bones/joints: Unremarkable. XR/XR chest 1V portable [id number] IMPRESSION: No visualized acute cardiopulmonary process.
--- OUTSIDE RECORDS SUMMARY | 2025-10-03 20:58 | XMS_ITS | Data Portability ---
Author Organization [facility] Address [address] [place] [address] Care Team Providers Care Lining Marker Name Role Phone LUIS TRUJILLO Primary Care Provider Unavailab le Assessment Encounter Date Assessment Date Assessment LastModified by Organization Details LastModified Time 11/29/2024 11/29/2024 Patient negative for COVID-19 and flu. Symptoms likely related to common cold, however patient's son is positive for Influenza A today. Will send in medications for symptomatic relief. Advised to drink plenty of fluids, and get plenty of rest. Patient may take acetaminophen or ibuprofen as directed to reduce fever and body aches. Antihistamine and decongestant usage was discussed and recommendations made. Advised to follow up in the office in 10 days to 2 weeks as needed if symptoms not improving. Patient will be covered with ABX for possible dental abscess. Will give shot of penicillin for treatment. Educated to go to PCP or nearest ER if facial swelling worsens or develops increased pain, fever, increased drainage, difficulty speaking, etc. Patient educated to keep abscess and surrounding areas clean and dry. Educated to finish antibiotics in its entirety. Encouraged to keep appointment with dentist. Will start on Losartan, will establish care with PCP on Wednesday. Patient is agreeable with plan of care at this time. Not available 11/29/2024 16:45:13 05/30/2025 05/30/2025 Patient's overal l physical examination was benign. Symptoms likely related to common cold, no further testing indicated at this time. Will send in medication that will treat her related symptoms. No antibiotics are indicated at this time as symptoms have been present for less than 14 days and does not present as a secondary infection. Advised to drink plenty of fluids, and get plenty of rest. Patient should avoid over-exertion and reduce exposure to irritants such as smoke, cold, dry air, and dust. Treatment currently involves symptomatic relief. Patient may take acetaminophen or ibuprofen as directed to reduce fever and body aches. Antihistamine and decongestant usage was discussed and recommendations made. Advised to follow up in the office in 10 days to 2 weeks as needed if symptoms not improving. Patient's BP elevated at appointment. Reports that she is taking Losartan 25mg twice a day and it is still elevated. Patient does not have a PCP, however is needing one. Patient is agreeable to increase Losartan dosage to 50mg twice daily to see if that provides better BP control. Will send in the script for 3 months to give patient plenty of time to get in with a PCP. Patient is agreeable with plan of care at this time. Not available 05/30/2025 16:57:06 Plan of Treatment Reminders Order Date Submit Date Provider Last Modified By Organization Details Last Modified Time Details Appointments None recorded. Lab influenza virus A + B + SARS-CoV- 2 (COVID19) Ag panel, rapid IA, upper respirato ry specimen 2024 025 [email or web address] [facility] [address], [address], 5 12:52:50 urinalysi s panel, auto 2021 [email or web address], [address], 17:35:27 rapid strep group A, throat 2021 [email or web address], [address], 17:35:27 culture, urine 2021 022 ALLEY [facility], [address] [place] [address], [address], 21:30:23 influenza virus A + B + SARS-CoV- 2 (COVID19) Ag panel, rapid IA, upper respirato ry specimen 2021 [email or web address] [facility] [place], [address] [place], [address], 17:35:27 Referral None recorded. Procedures IV insertion (PROC) 2021 [email or web address] Not available 17:03:43 IV infusion, hydration , 31-60 min (PROC) 2021 [email or web address] Not available 17:05:11 Surgeries None recorded. Imaging None recorded. Medication Orders ondansetr on 4 mg disintegr ating tablet 2024 025 [facility], [address] [place] [address], [address], 12:57:47 losartan 50 mg tablet 2024 025 [facility], [address] [place] [address], [address], 12:57:47 Tussin DM 10 mg-100 mg/5 mL oral liquid 2024 025 [facility], [address] [place] [address], [address], 12:57:46 ipratropi um bromide 42 mcg (0.06 %) nasal spray 2024 025 [facility], [address] [place] [address], [address], 12:57:46 dexametha sone 4 mg tablet 2024 025 [email or web address] Not available 12:54:23 clindamyc in HCl 150 mg capsule 2024 025 [email or web address] [facility], [address] [place], [place] [address], [place], [address], 5 12:27:16 penicilli n G benzathin e 1,200,000 unit/2 mL intramusc ular syringe 2024 025 [email or web address] Not available 5 12:27:10 losartan 25 mg tablet 2024 025 [email or web address] [facility], [address] [place], [place] [address], [address], 5 12:46:46 Tussin DM 10 mg-100 mg/5 mL oral liquid 2024 025 [facility], [address] [place], [place] [address], [place], [address], 5 12:38:09 dexametha sone 4 mg tablet 2024 025 [email or web address] Not available 12:27:03 Tylenol 325 mg capsule 2021 022 [email or web address] Not available 15:08:07 ceftriaxo ne 1 gram solution for injection 2021 022 [email or web address] Not available 5 15:08:27 ketorolac 30 mg/mL (1 mL) injection solution 2021 022 [email or web address] Not available 5 15:08:00 Patient TargetsNo targets recorded. Patient Instructions Encounter Date Encounter Id Patient Instructions Last Modified By Organization Details Last Modified Time 09/02/2022 [id number] pt being transferred to [facility] ER via [facility] for further evaluation @ [id number]. Patient requests transport by EMS. Not available 09/02/2022 18:14:22 Reason for Referral None Reported. Results Created Date Observation Date Name Description Value Unit Range Abnormal Flag Note LastModifiedBy Organization Detail LastModifiedTime 09/02/20 22 09/02/2022 CULTU RE, URINE , ROUTI NE source: urine Not Available [facility] [address] [place], [address], 09/04/2022 21:30:23 09/02/20 22 09/04/2022 CULTU RE, URINE , ROUTI NE culture, urine, routine SEE NOTE abnormal CULTU RE, URINE , ROUTI NE Micro Numbe r: [id number] Test Statu s: Final Speci men Sourc e: Urine Speci men Quali ty: Adequ ate Resul t: Great er than 100,0 00 CFU/m L of Esche gerardo a coli E.col i ----- ----- ----- - INT GALI AMOX/ CLAVU LANAT E I 16 AMPIC ILLIN R >=32 AMP/S ULBAC CAMPBELL R >=32 CEFAZ DERRELL R >=64 1 CEFEP SEBASTIAN S <=1 CEFTA ZIDIM E S <=1 CEFTR IAXON E S <=1 CIPRO FLOXA TREVOR S <=0.2 5 GENTA MICIN S <=1 IMIPE NEM S <=0.2 5 LEVOF LOXAC IN S <=0.1 2 NITRO FURAN TOIN S <=16 PIP/T AZOBA CTAM S 8 TOBRA MYCIN S <=1 TRIME THOPR IM/BRADY LFA S <=20 S=Magda cepti ble I=Int ermed iate R=Res istan t * = Not Teste d NR = Not Repor nidia NN = See Thera py Comme nts THERA PY COMME NTS Note 1: For uncom plica nidia UTI cause d by E. coli, K. pneum oniae or P. mirab ilis: Cefaz derrell is susce ptibl e if GALI <32 mcg/m L and predi cts susce ptibl e to the oral agent s cefac ramón, cefdi rhina, cefpo doxim e, cefpr ozil, cefur oxime , cepha lexin and lorac arbef . Not Available [facility] [address] [place], [address], 09/04/2022 21:30:23 09/02/20 22 09/02/2022 influ nida virus A + B + SARS- CoV-2 (COVI D19) Ag panel , rapid IA, upper respi rator y speci men Flu A negati ve Not Available [address], [address], 09/02/2022 17:16:40 09/02/20 22 09/02/2022 influ nida virus A + B + SARS- CoV-2 (COVI D19) Ag panel , rapid IA, upper respi rator y speci men Flu B negati ve Not Available [address], [address], 09/02/2022 17:16:40 09/02/20 22 09/02/2022 influ nida virus A + B + SARS- CoV-2 (COVI D19) Ag panel , rapid IA, upper respi rator y speci men COVID negati ve Not Available [address], [address], 09/02/2022 17:16:40 09/02/20 22 09/02/2022 rapid strep group A, throa t Strep negati ve Not Available [address], [address], 09/02/2022 17:17:04 09/02/20 22 09/02/2022 urina lysis panel , auto ALEIDA 2+ Not Available [address], [address], 09/02/2022 17:05:43 09/02/20 22 09/02/2022 urina lysis panel , auto NIT Positi ve Not Available [address], [address], 09/02/2022 17:05:43 09/02/20 22 09/02/2022 urina lysis panel , auto URO 1.0 Not Available [address], [address], 09/02/2022 17:05:43 09/02/20 22 09/02/2022 urina lysis panel , auto PRO 1+ Not Available [address], [address], 09/02/2022 17:05:43 09/02/20 22 09/02/2022 urina lysis panel , auto pH 6.0 Not Available [address], [address], 09/02/2022 17:05:43 09/02/20 22 09/02/2022 urina lysis panel , auto BLO Trace- intact Not Available [address], [address], 09/02/2022 17:05:43 09/02/20 22 09/02/2022 urina lysis panel , auto SG 1.020 Not Available [address], [address], 09/02/2022 17:05:43 09/02/20 22 09/02/2022 urina lysis panel , auto KET Negati ve Not Available [address], [address], 09/02/2022 17:05:43 09/02/20 22 09/02/2022 urina lysis panel , auto KRISTIN Negati ve Not Available [address], [address], 09/02/2022 17:05:43 09/02/20 22 09/02/2022 urina lysis panel , auto GLU Negati ve Not Available [address], [address], 09/02/2022 17:05:43 11/29/19 25 11/29/2024 influ nida virus A + B + SARS- CoV-2 (COVI D19) Ag panel , rapid IA, upper respi rator y speci men flu A N Not Available [address], [address], 11/29/2024 12:41:27 11/29/19 25 11/29/2024 influ nida virus A + B + SARS- CoV-2 (COVI D19) Ag panel , rapid IA, upper respi rator y speci men flu B N Not Available [address], [address], 11/29/2024 12:41:27 11/29/19 25 11/29/2024 influ nida virus A + B + SARS- CoV-2 (COVI D19) Ag panel , rapid IA, upper respi rator y speci men covid N Not Available [address], [address], 11/29/2024 12:41:27 Result Notes None recorded. Problems Name Problem SNOMED Code Status Onset Date Resolution Date Notes Provider Name and Address Organization Details Recorded Time Hypertensive disorder 22605699 Active 2021 PARVEZ [facility] 17:23:28 Problem Notes None recorded. Procedures Surgical History Date Name Laterality Status Provider Name and Address Organization Details Recorded Time ligation of fallopian tube completed [facility] 09/02/2022 17:29:58 procedure on nasal septum completed [facility] 09/02/2022 17:30:06 Imaging Results None recorded. Procedure Notes None recorded. Medical Equipment None Reported. Allergies No known drug allergies Medications Name Sig Start Date Stop Date Status Note LastModified by Organization Details LastModified Time losartan 50 mg tablet TAKE ONE TABLET BY MOUTH TWICE DAILY IN THE MORNING active Not Available Not Available No t Available hydrocodone 5 mg-acetamin ophen 325 mg tablet TAKE 1 TABLET BY MOUTH EVERY 8 HOURS NEEDED FOR PAIN 09/02 completed Not Available Not Available Not Available clindamycin HCl 150 mg capsule TAKE ONE CAPSULE BY MOUTH EVERY 6 HOURS DIRECTED FOR 10 DAYS 05/30 completed Not Available Not Available Not Available penicillin V potassium 500 mg tablet TAKE 1 TABLET BY MOUTH EVERY 8 HOURS FOR 7 DAYS 12/01 completed Not Available Not Available Not Available tramadol 50 mg tablet TAKE 1 TABLET BY MOUTH EVERY 4 HOURS NEEDED FOR PAIN 09/02 completed Not Available Not Available Not Available ketorolac 30 mg/mL (1 mL) injection solution Inject 30 mg by intramusc ular route. 11/29 completed Not Available Not Available Not Available ceftriaxone 1 gram solution for injection Take 1 g by injection route. 11/29 completed Not Available Not Available Not Available amoxicillin 875 mg tablet TAKE 1 TABLET BY MOUTH TWICE DAILY 09/02 completed Not Available Not Available Not Available dexamethaso ne 4 mg tablet Take 2.5 tablets by oral route. 2024 active Not Available Not Available Not Avai lable lisinopril 10 mg tablet TAKE 1 TABLET BY MOUTH ONCE DAILY 09/02 completed Not Available Not Available Not Available losartan 25 mg tablet TAKE 1 TABLET BY MOUTH ONCE DAILY IN THE MORNING active Not Available Not Available No t Available Tussin DM 10 mg-100 mg/5 mL oral liquid Take 10 mL every 4 hours by oral route as needed, for cough, congestio n. 2024 active Not Available Not Available Not Avai lable ipratropium bromide 42 mcg (0.06 %) nasal spray SPRAY TWO SPRAYS INTO EACH NOSTRIL THREE TIMES DAILY active Not Available Not Available No t Available ondansetron 4 mg disintegrat ing tablet PLACE ONE TABLET UNDER THE TONGUE THREE TIMES DAILY NEEDED FOR NAUSEA, VOMITING active Not Available Not Available No t Available penicillin G benzathine 1,200,000 unit/2 mL intramuscul ar syringe Inject 2 mL by intramusc ular route. 05/30 completed Not Available Not Available Not Available chlorhexidi ne gluconate 0.12 % mouthwash RINSE WITH 15ML FOR 30 SECONDS AND SPIT, USE TWICE DAILY AFTER BRUSHING AND FLOSSING . 05/30 completed Not Available Not Available Not Available 11/29 completed Not Available Not Available Not Available Tylenol 325 mg capsule Take 2 capsules by oral route. 11/29 completed Not Available Not Available Not Available Chest Congestion Relief DM 10 mg-100 mg/5 mL oral syrup TAKE 10ML BY MOUTH EVERY 4 HOURS NEEDED FOR COUGH, CONGESTIO N active Not Available Not Available No t Available Vitals Date Recorded Body height Body mass index (BMI) Body weight Body temperature Heart rate Oxygen saturation Respiratory rate Systolic And Diastolic Systolic And Diastolic Provider Name and Address Organization Details Last Updated DateTime 5 175.26 cm 24.4 kg/m2 45329.5 4 g 97.9 [degF] 91 /min 99 % 18 /min 202/137 mm[Hg] 181/118 mm[Hg] Olimpia López [facility] 5 15:07:25 Date Recorded Body height Body mass index (BMI) Body weight Body temperature Heart rate Oxygen saturation Respiratory rate Systolic And Diastolic Systolic And Diastolic Provider Name and Address Organization Details Last Updated DateTime 5 175.26 cm 23 kg/m2 15616.6 2 g 97.9 [degF] 94 /min 99 % 18 /min 175/123 mm[Hg] 174/122 mm[Hg] Millicent Maldonado [facility] 5 12:34:32 Date Recorded Body height Body mass index (BMI) Body weight Body temperature Heart rate Oxygen saturation Respiratory rate Systolic And Diastolic Provider Name and Address Organization Details Last Updated DateTime 2 175.26 cm 23.4 kg/m2 22991.2 9 g 101.6 [degF] 106 /min 98 % 18 /min 138/76 mm[Hg] Jocelyn Landon [facility] 17:21:42 Social History Question Answer Notes LastModified by Organizat ion Details LastModified Time Tobacco Smoking Status Current Every Day Smoker Jocelyn Landon [facility], [facility] 09/02/2022 17:28:01 Do You Have An Advance Directive? No Information not available 09/02/2022 How Many Years Have You Consumed Alcohol? 15 [email or web address] Information not available 11/29/2024 Do You Wear A Helmet When Biking? No [email or web address] Information not available 11/29/2024 Are You Blind Or Do You Have Difficulty Seeing? No Information not available 09/02/2022 Is Blood Transfusion Acceptable In An Emergency? Yes Information not available 09/02/2022 What Is Your Level Of Caffeine Consumption? Moderate Information not available 09/02/2022 In The 14 Days Before Symptom Onset, Have You Had Close Contact With A Laboratory-confi rmed COVID-19 While That Case Was Ill? No Information not available 09/02/2022 In The 14 Days Before Symptom Onset, Have You Had Close Contact With A Person Who Is Under Investigation For COVID-19 While That Person Was Ill? No Information not available 09/02/2022 Have You Been To An Area Known To Be High Risk For COVID-19? No [email or web address] Information not available 11/29/2024 Are You Deaf Or Do You Have Serious Difficulty Hearing? No Information not available 09/02/2022 What Type Of Diet Are You Following? REGULAR Information not available 09/02/2022 Which Illicit Or Recreational Drugs Have You Used? Marijuana Information not available 09/02/2022 Have You Processed Blood Or Body Fluids From An Ebola Virus Disease Patient Without Appropriate PPE? No Information not available 09/02/2022 What Is The Highest Grade Or Level Of School You Have Completed Or The Highest Degree You Have Received? [id number] Science Information not available 09/02/2022 How Many Days Of Moderate To Strenuous Exercise, Like A Brisk Walk, Did You Do In The Last 7 Days? 0 Information not available 11/29/2024 How Many Years Have You Used Illicit Or Recreational Drugs? 20 [email or web address] Information not available 11/29/2024 In The Past 6 Months Have You Fallen No Information not available 09/02/2022 Have You Ever Been Tested For Hepatitis C Yes Information not available 09/02/2022 Have You Had A Blood Transfusion Before 1991? No Information not available 09/02/2022 Have You Had Shelter Dialysis? No Information not available 09/02/2022 Have You Ever Used Injectable Drugs, Even Once? No Information not available 09/02/2022 Do You Have Tattoos Or Body Piercings? Yes Information not available 09/02/2022 Have You Had Close Contact With An Individual With Hepatitis C? No Information not available 09/02/2022 Have You Ever Had Sex For Drugs Or Money? No Information not available 09/02/2022 Have You Ever Had Unprotected Sex? Yes Information not available 09/02/2022 Have You Been Incarcerated For Longer Than 6 Months? No Information not available 09/02/2022 Have You Tested Positive For HIV? No Information not available 09/02/2022 Do You Have A History Of Fist Fighting Or Combat Experience? No Information not available 09/02/2022 Medication List Reconciled Yes [email or web address] Information not available 09/02/2022 What Number (0-10) Best Describes How, During The Past Week, Has Interfered With Your General Activity? 8 [email or web address] Information not available 11/29/2024 What Number (0-10) Best Describes How, During The Past Week, Pain Has Interfered With Your Enjoyment In The Past Week 8 [email or web address] Information not available 11/29/2024 What Number (0-10) Best Describes Your Pain On Average In The Past Week 8 [email or web address] Information not available 11/29/2024 Total PEG Score 24 [email or web address] Informat ion not available 11/29/2024 Sexual Orientation Straight Or Heterosexual [email or web address] Information not available 11/29/2024 Gender Identity Female [email or web address] Informati on not available 09/02/2022 Do You Feel Safe Yes [email or web address] Informat ion not available 09/02/2022 What Was The Date Of Your Most Recent Tobacco Screening? 05/30/2025 [email or web address] Information not available 05/30/2025 How Many Children Do You Have? 3 Information not available 09/02/2022 Do You Use Protection During Sex? No [email or web address] Information not available 11/29/2024 What Is Your Relationship Status? Single Information not available 09/02/2022 Do You Use Your Seat Belt Or Car Seat Routinely? Yes Information not available 09/02/2022 Are You Sexually Active? Yes Information not available 09/02/2022 At What Age Did You Start Smoking Tobacco? 17 [email or web address] Information not available 11/29/2024 How Much Tobacco Do You Smoke? 1 PPD [email or web address] Information not available 11/29/2024 What Types Of Sporting Activities Do You Participate In? None [email or web address] Information not available 11/29/2024 How Many Years Have You Smoked Tobacco? 17 [email or web address] Information not available 11/29/2024 Have You Used IV Drugs? No Information not available 09/02/2022 Do You Have Difficulty Walking Or Climbing Stairs? No Information not available 09/02/2022 Do You Want To Talk About Contraception Or Prevention During Your Visit Today? No - I Do Not Want To Talk About Contraception Today Because I Am Here For Something Else [email or web address] Information not available 11/29/2024 Do You Have Any Future Plans To Get ? No, I Don't Want To Become [email or web address] Information not available 11/29/2024 Sex: Female Functional Status Question Answer Note LastModified by Organizat ion Details LastModified Time Do you use any illicit or recreational drugs? Yes Information not available 09/02/2022 Do you or have you ever used any other forms of tobacco or nicotine? No Information not available 09/02/2022 What is your level of alcohol consumption? Heavy 1 pint per day of vodka, tring to quit [email or web address] Information not available 05/30/2025 Are you currently employed? No [email or web address] Information not available 11/29/2024 Do you have transportation difficulties? No Information not available 09/02/2022 Are you able to walk independently without assistance or assistive devices? [email or web address] Information not available 09/02/2022 Do you have difficulty doing errands alone? No Information not available 09/02/2022 Are you able to care for yourself independently? Yes Information not available 09/02/2022 Do you have difficulty dressing, bathing, grooming, or toileting? No Information not available 09/02/2022 What is your exercise level? None Information not available 09/02/2022 Mental Status Question Answer Note LastModified by Organizat ion Details LastModified Time Do you feel stressed (tense, restless, nervous, or anxious, or unable to sleep at night)? [id number] Information not available 09/02/2022 Do you have difficulty concentrating, remembering or making decisions? No [email or web address] Information no t available 09/02/2022 Family History Relationship Description Onset Age of this Age Resolved Age Notes LastModified by Organization Details LastModified Time Father No current problems or disability [email or web address] Not available 06/2022 17:25:39 Mother No current problems or disability [email or web address] Not available 06/2022 17:25:39 Notes:UTD per PT Medical History Condition Response Other N Gout N Kidney Stones N Blood Diseases N Hyperthyroidism N Blood Transfusion N Depression N COPD N Incontinence N Edema N Endocrine Disorders N Anxiety Disorder Y Muscle, Joint, or Bone Problems N Obesity N Vision or Eye Problems N Arthritis N Auditory Hallucinations N Infertility N Cancer N Varicosities N Stroke N Fibromyalgia N Headaches N Kidney Disease N Abnormal Bleeding N Reproductive System Problems N Ear or Hearing Problems N Hospitalizations Y Learning Disorder N Skin Problems N Eating Disorder N MRSA exposure N Urinary Problems N Constipation N Brain Injury N Visual Hallucinations N AIDS/HIV N Tuberculosis N Back Problems N Asthma N GERD/Reflux N Hepatitis N Pulmonary Embolism N Chronic Ear Infections N Chicken Pox N Autism Spectrum Disorder (ASD) N Thrombophilias N Thyroid Disease N Breast Cancer N Hypothyroidism N Lung Disease N Developmental or Behavioral Disorders N Defects or Inherited Disease N Breast Problem N Difficulty Swallowing N Anesthesia Complications N Deep Vein Thrombosis N Meniere's disease N Hearing Loss N Head Injury/Concussion N Congenital Anomalies N Abnormal Pap Smear N Endometriosis N Bladder or Kidney Problems N High Cholesterol N Nervous System Disorder N Liver Disease N Psychiatric/Mental Health Condition N Schizophrenia N Allergies/Hayfever N Parkinson's Disease N GI Problems N ADD/ADHD N Anemia N Colon Polyps N Heart Attack ([place]) N Diabetes N Ovarian Cancer N Bedwetting N Seizures/Epilepsy N Amnesia N Congestive Heart Failure (CHF) N Eczema N Dementia N Diverticulitis N Abuse/Domestic Violence N Cardiovascular Y Tourette Syndrome N Hypertension Y Pre-Eclampsia N Osteoporosis N Gynecological History Statement/Question Response Abnormal Pap Y Patient reports last mammogram Flow Moderate Date of LMP 11/23/2024 Patient reports last colonoscopy Patient reports last pap STIs/STDs Y HPV Vaccine N Most Recent Mammogram Age at Menarche 10 Current Control Method Tubal Ligat ion Age at First Child 19 Frequency of Cycle (Q days) 28 Most Recent Bone Density Sexually Active? Y Date of Last Pap Smear Sexual Problems? N Obstetrics History GPAL:G 3 P 3 0 0 3 Type Value Multiple Births 0 Full Term 3 Induced 0 Spontaneous 0 Premature 0 Living 3 Ectopics 0 Total 3 Immunizations Vaccine Type Date Status Note Provider Nam e and Address Organization Details Recorded Time Hep B, unspecified formulation 9 completed Olimpia López [facility] 11/29/2024 15:07:31 Hep B, unspecified formulation 8 completed Olimpia [facility] 11/29/2024 15:07:31 Hep B, adolescent or pediatric 8 completed Olimpia López [facility] 11/29/2024 15:07:31 Hep A, ped/adol, 2 dose 9 completed Olimpia López [facility] 11/29/2024 15:07:31 Hep A, ped/adol, 2 dose 8 completed Olimpia López [facility] 11/29/2024 15:07:31 Hep A, ped/adol, 2 dose 8 completed Olimpia López [facility] [place] [facility] 11/29/2024 15:07:31 Tdap 3 completed Not Available [facility] 05/30/2025 12:13:49 Tdap 4 completed Not Available [facility] 05/30/2025 12:13:49 Past Encounters Encounter ID Performer Location Encounter Start Date Encounter Closed Date Diagnosis/Indication Diagnosis SNOMED-CT Code Diagnosis ICD10 Code Diagnosis IMO Codes Diagnosis Note [id number] KALYN ARREOLA NP [address] [address] 09/02/2022 14:27:28 09/02/2022 18:18:34 Dysuria 18988260 R30.0 Suspected COVID-19 46551 4004 Z20.822 Pain in throat 578728387 R07.0 Acute urin anthony tract infection 982259999 N39.0 Fever 242687700 R50.9 Acute pyelonephritis 366 63376 N10 [id number] Oscar Billy MD [address] [address] 11/28/2024 17:41:18 11/29/2024 11:05:27 [id number] Oscar Billy MD [address] [address] 11/29/2024 12:08:46 11/29/2024 13:49:15 Cough 82380116 R05.9 Respirator y tract congestion and cough 761311419 R05.9 Essential hypertension 87502634 I10 Dental abscess 972924778 K04.7 Finding of body mass index 468401227 Z68.24 [id number] Oscar Billy MD [address] [address] 05/30/2025 12:12:24 05/30/2025 12:51:19 Essential hypertension 59060588 I10 40446 Respirator y tract congestion and cough 774318943 R05.9 Nausea 355956435 R11.0 96853 Body mass index 20-24 - normal 086207905 Z68.23 [id number] Health Concerns Section Related Observation LastModified by Organization Detai ls LastModified Time None Recorded Concern Status LastModified by Organization Details LastModified Time None Recorded Advance Directives Directive N: Payers Insurance Date Sequence Insurance Name Policy Number Policy Romero Covered Member ID Romero Member ID Guarantor Name 05/30/2025 2 [place] Lakeshia Brandt [id number] Lakeshia Brandt 06/05/2025 1 [facility] (MEDICAID HMO) Lakeshia Brandt [id number] Lakeshia Brandt Notes Date Note Type Note Provider Name and Address Organization Details Recorded Time 09/02/2022 text/html ROS as noted in the HPI Dysuria, urinary frequency, lower back pain, cold chills, body aches, sore throat, cough. [facility] 18:15:24 11/29/2024 text/html ROS as noted in the HPI Patient presents to the [facility] with a chief complaint of cough, congestion, and right ear pain for a few days. Denies fever, N/V/D. Reports that her children have the same symptoms. Reports that she is eating and drinking like normal. Acting like normal. Reports swelling to right side of face, reports a bad tooth. States she is supposed to get her tooth pulled today at a dentist appointment in [place]. Also requesting to be started on BP medication and get a new PCP. Fabiolagurmeet Garcia[address], [address], [facility] 11/29/2024 16:45:58 05/30/2025 text/html ROS as noted in the HPI Patient presents to the [facility] with a chief complaint of cough, congestion, headache, nausea, and pressure behind ears for a few days. Reports using some throat spray at home without any significant improvement. Denies fever, sore throat, vomiting, diarrhea, abdominal pain. Fabiolaguremet Garcia[address], [address], [facility] 05/30/2025 16:57:30 OBGyn Episode No OBEpisode recorded.
--- NOTE | 2025-10-03 21:03 | ED_ITS ---
HPI - SOB/Dyspnea General: Chief Complaint: Shortness of Breath/Dyspnea Stated Complaint: blood pressue up Time Seen by Provider: 10/03/25 20:44 History of Present Illness: HPI Narrative: Patient is a 34-year-old female that presents to the ED due to shortness of breath. She was visiting a friend [place] with heart trouble when she was eating a piece of pizza, and became short of breath. She denies any food bolus or catching. She feels like she cannot get her breath. She feels like it is tight. She does not have any chest discomfort. No fevers. No sick exposure. Associated symptoms: Deny abdominal pain, chest pain, dizziness, fever(s), nausea, palpitations, syncope or vomiting Related Data Previous Rx's ?Medication ?Instructions ?Recorded lisinopril 10 mg tablet 10 mg PO DAILY #30 tabs 11/26 chlorhexidine gluconate 0.12 % 15 ml buccal BID #473 m L 01/04/24 mouthwash (Peridex) azithromycin 500 mg tablet See Rx Instructions PO .COM PLEX #3 10/03/25 tabs methylprednisolone 4 mg tablets in See Rx Instructions PO .COMPLEX 10/03/25 a dose pack (Medrol (Cecil)) #21 ea Allergies Allergy/AdvReac Type Severity Reaction Status Date / Time No Known Allergies Allergy Verified 12/19/21 11:21 Review of Systems General: Reports: 10 or more systems reviewed and unremarkable except in HPI and below Const: Denies: fever(s), chills, body aches, fatigue or malaise ENMT: Denies: throat pain, enlarged tonsils, odynophagia, swelling of lips/tongue, oral sores, nasal discharge, nasal congestion or sinus pain Card: Denies: chest pain, palpitations or syncope Resp: Reports: dyspnea and non-productive cough; Denies: productive cough GI: Denies: abdominal pain, nausea or vomiting : Denies: flank pain Musc: Denies: neck pain or back pain Neuro: Denies: headache(s) or dizziness Psych: Denies: anxiety or depression [facility] PFSH: Medical History (Updated 10/03/25 @ 22:09 by VELMA Rivas) No pertinent past medical history Social History (Reviewed 01/04/24 @ 14:04 by GEOVANY Guerrero Smoking and tobacco/nicotine status: current every day tobacco/nicotine user cigarettes Packs smoked per day: 0.5 Years cigarettes smoked: 14 Quit status (tobacco/nicotine): considering quitting Second hand smoke exposure: Yes Alcohol intake: never Substance/Drug Use: never Lives independently: Yes Household members: children Current occupational status: employed Current occupation: self Current gender identity: Female Special emily needs: No Agree to transfusion: Yes Physical Exam Const: COMMON NORMALS: no acute distress, average body habitus, patient oriented x3 and well nourished HENMT: COMMON NORMALS: normocephalic and atraumatic HEAD & SCALP: normocephalic and atraumatic Neck/C-Spine: COMMON NORMALS: full ROM, no lymphadenopathy, supple and no meningeal signs Chest: COMMONS NORMALS: normal inspection of the chest and normal palpation of entire chest wall Resp: COMMON NORMALS: normal respiratory effort, No retractions and No use of accessory muscles EFFORT & INSPECTION: Yes abnormal respiratory pattern other (Hyperventilating), No respiratory distress and No labored AUSCULTATION: wheezes (Upper lobes) and bronchial breath sounds Cardio: COMMON NORMALS: regular rate and regular rhythm RATE: regular rate RHYTHM: regular rhythm GI: COMMON NORMALS: Normal to inspection, nondistended, normoactive bowel sounds present, Soft to palpation, non-tender and No hepatosplenomegaly present PALPATION: Yes Soft to palpation and Yes No hepatosplenomegaly present : COMMON NORMALS: Yes no CVA tenderness BLADDER/KIDNEY EXAM: Yes no CVA tenderness Back/Pelvis: COMMON NORMALS: no CVA tenderness and thoracic and lumbar spine normal to inspection Extremity: COMMON NORMALS: normal to inspection, full ROM and capillary refill normal Neuro: COMMON NORMALS: patient oriented x3 MENINGEAL SIGNS: Yes no meningeal signs Psych: COMMON NORMALS: mental status grossly normal, Normal thought process present and cooperative THOUGHT PROCESS: Normal thought process present Course Vital Signs: Vital signs: Vital Signs Temperature 97.5 F L 10/03/25 20:29 Pulse Rate 90 10/03/25 22:00 Respiratory Rate 18 10/03/25 21:42 Blood Pressure 171/110 10/03/25 22:00 Pulse Oximetry 99 10/03/25 22:00 Oxygen Delivery Me thod Room Air 10/03/25 22:00 MDM - SOB/Dyspnea Medical Decision Making Patient is a 34-year-old female that comes in with shortness of breath. Workup is essentially negative. She does feel improvement after albuterol inhaler, and dexamethasone. She will be discharged home with precautions, and will utilize antibiotic for secondary infection. Medical Records I reviewed the patient's medical records. Lab Data I reviewed the patient's lab results. Labs/Radiology: Radiology Impressions Chest X-Ray 10/03/25 20:54 IMPRESSION: No visualized acute cardiopulmonary process. Laboratory Results Influenza A (PCR) Negative (Negative) 10/03/25 21:48 Influenza Type B (PCR) Negative (Negative) 10/03/25 21:48 RSV (PCR) Negative (Negative) 10/03/25 21:48 SARS-CoV-2 (PCR) Negative (Negative) 10/03/25 21:48 All radiology interpretation(s) finalized by discharge Discharge Plan Discharge Patient Disposition: Home Clinical Impression: Asthma with exacerbation Qualifiers: Asthma severity: mild Asthma persistence: intermittent Qualified Code(s): J45.21 - Mild intermittent asthma with (acute) exacerbation Condition: Stable Prescriptions: New azithromycin 500 mg tablet See Rx Instructions .ROUTE .COMPLEX Qty: 3 0RF Rx Instructions: For 250 mg dose pack: take 500 mg today (day 1), then 250 mg for 4 days (days 2-5) methylprednisolone [Medrol (Cecil)] 4 mg tablets,dose pack See Rx Instructions PO .COMPLEX Qty: 21 0RF Rx Instructions: for 6 days No Action lisinopril 10 mg tablet 10 mg PO DAILY Qty: 30 0RF Rx Instructions: for blood pressure Peridex 0.12 % mouthwash 15 ml buccal BID Qty: 473 0RF Discharge Orders: Discharge ED (Routine); Ordered 10/03/25 Ordered By: Crissy Krishnan Discharge Diet: Usual diet Discharge Activity: Resume usual activity Patient Instructions: Asthma - Adult, Upper Respiratory Infection (ED), Patient Portal & Lashanda Instructions Activity Restrictions/Additional Instructions: - At the pharmacy: Medrol Dosepak, azithromycin. Use as directed. - For home use: Albuterol inhaler with AeroChamber. Use the AeroChamber and instructions as you were given. - Return to ED if you have further issues - Call your doctor tomorrow to follow-up regarding your wheezing, possible asthma, and further management. Thank you for choosing [facility] for your healthcare needs today. You have been screened and evaluated and felt safe for discharge. Health conditions do change or evolve sometimes and as such it is important that you follow up with your Primary Doctor to be re checked, 3-5 days is a general good time frame for follow up. You are always welcome to return to the ED for re assessment if your symptoms are worsening or you have new concerns Print Language: Surinamese Coding Level of Care Code ED Warehouse Processor for Angela Smith
[2025-10-03 21:35] VITALS: PULSE 80; RESP 17; O2SAT 99
[2025-10-03] MEDS: albuterol 8 gm MDI 2 PUFF INHALATION (21:35)
[2025-10-03 21:42] VITALS: BP 173/103; PULSE 87; RESP 18; O2SAT 100
[2025-10-03 22:00] VITALS: BP 171/110; PULSE 90; O2SAT 99
[2025-10-03] MEDS: ondansetron hcl ODT 4 mg Tab PO (22:30)
[2025-10-03 22:40] LABS: Respiratory Syncytial Virus Ce NEGATIVE (Negative); SARS-CoV-2 PCR NEGATIVE (Negative)
== END 2025-10-03 22:36 | disposition home or self-care (01) ==
PROVIDERS: Emergency Provider Physician Assistant
DX: J45.21 Mild intermittent asthma with (acute) exacerbation (principal); Z11.52 Encounter for screening for COVID-19; F17.210 Nicotine dependence, cigarettes, uncomplicated
CPT/HCPCS: 71045; 87637; 94640; 96372; 99284; J1100; J3535; Q0162